=== PATIENT | female | born 1975 | race Caucasian/White ===

== ENCOUNTER 2020-11-12 17:38 | Emergency (ER) | payer OTHER, SELFPAY ==
[2020-11-12 17:45] VITALS: BP 136/68; PULSE 88; RESP 18; TEMP 37.6; O2SAT 97
--- NOTE | 2020-11-12 17:45 | ED.WOUNDLAC ---
HPI - Wound/Laceration General Chief Complaint: Extremity Injury, Lower Stated Complaint: Fall Time Seen by Provider: 11/12/20 17:45 Source: patient and RN notes reviewed History of Present Illness HPI narrative: Patient is a 45-year-old female who presents the urgent care with complaints of a left knee laceration. Patient states that she was carrying a large heavy box up with a curb and slipped off the curb and onto her left knee and left elbow. Patient states that she has a small scrape on the left elbow but is not complaining of any pain. Patient states that the pain is all located to the left knee. Patient states that it happened just prior to arrival and she has not taken anything [id number] for her pain. Denies hitting her head or any loss of consciousness. Patient states that she is up-to-date on her tetanus. No other acute complaints. No acute distress noted. Patient aware of the plan of care. Some parts of this dictation were generated by voice recognition software and may contain typographical and/or grammatical inaccuracies. Related Data Allergies Allergy/AdvReac Type Severity Reaction Status Date / Time No Known Allergies Allergy Mild Unverified 04/30/13 11:57 Review of Systems Review of Systems: Narrative: CONSTITUTIONAL: Denies fever, chills, or sweats. EYES: Denies visual changes, redness, or discharge. ENT: Denies rhinorrhea, congestion, sore throat, or otalgia. CARDIOVASCULAR: Denies chest pain, palpitations, or edema. RESPIRATORY: Denies cough or dyspnea. GASTROINTESTINAL: Denies abdominal pain, nausea, vomiting, or diarrhea. GENITOURINARY: Denies dysuria or hematuria. SKIN: Reports of a laceration to the left knee and a small abrasion to the left elbow and left pinky finger MUSCULOSKELETAL: Reports of left knee pain and swelling NEUROLOGIC: Denies headache, numbness, or weakness. All other systems reviewed are negative, except as documented in HPI. PMFSH Comments At the time of my signature, I reviewed and agree with the nursing past medical, surgical, social, and family history. There is no relevant family history pertinent to the patient complaint. Exam Narrative: Exam Narrative: GENERAL: This is a well-nourished, well-developed patient, in no apparent distress. HEAD: normocephalic, atraumatic. EYES: PERRL. Sclera clear/white. Vision is grossly intact. EARS: External ears normal NOSE: External nose normal with no obvious nasal discharge, nares without redness, no rhinorrhea. THROAT: Mucous membranes moist NECK: Neck supple SKIN: 3 cm linear laceration to the anterior kneecap. Mild skin abrasion to the left elbow and left fifth digit NEURO: awake, alert, and oriented to person, place and time. There were no obvious focal neurologic abnormalities. EXTREMITIES: Range of motion not tested to left knee due to laceration and pain/swelling. Notable swelling to the left knee with mild anterior tenderness. Positive strong left pedal pulse with capillary refill less than 2 seconds. Pain exacerbated with weightbearing. Course Vital Signs Vital signs: Vital Signs Temperature 99.6 F 11/12/20 17:45 Pulse Rate 88 11/12/20 17:45 Respiratory Rate 18 11/12/20 17:45 Blood Pressure 136/68 11/12/20 17:45 Pulse Oximetry 97 11/12/20 17:45 Temperature 99.6 F 11/12/20 17:45 Pulse Rate 88 11/12/20 17:45 Respiratory Rate 18 11/12/20 17:45 Blood Pressure 136/68 11/12/20 17:45 Pulse Oximetry 97 11/12/20 17:45 Reviewed Procedures Laceration Laceration 1: Site: lower extremity (Knee) Side (If applicable): left Size (cm): 3 Description: linear Depth: simple, single layer Local Anesthetic: lidocaine 1% Amount of anesthesia used (mL): 2 Pre-repair: irrigated and irrigated extensively ([employer] normal saline with large 60 mils syringe) ====== Skin Level ====== Skin layer closed with: steri strips (5) and other (Ethilon)
== END 2020-11-12 19:17 | disposition home or self-care (01) ==
PROVIDERS: Emergency Provider Nurse Practitioner Family; PCP Internal Medicine
DX: S81.012A Laceration without foreign body, left knee, initial encounter (principal); W10.1XXA Fall (on)(from) sidewalk curb, initial encounter
CPT/HCPCS: 12002; 99203; G0463

== ENCOUNTER 2022-03-04 18:59 | Emergency (ER) | payer OTHER, SELFPAY ==
[2022-03-04 19:08] VITALS: BP 134/95; PULSE 92; RESP 20; TEMP 37.5; O2SAT 100
--- NOTE | 2022-03-04 19:10 | ED.EAR ---
HPI - Ear Problem General Chief complaint: Ear Stated complaint: pressure in left ear Time Seen by Provider: 03/04/22 19:10 Source: patient and RN notes reviewed History of Present Illness HPI Narrative: Patient is a 46-year-old female who presents the urgent care with complaints of left ear pressure that started this morning patient is a patient states that she is taken ibuprofen but otherwise no use of [id number] medication. Patient states she had 1 dizzy spell today and was concerned she may have an ear infection. Patient denies any fevers, nausea, vomiting or other upper respiratory complaints. Patient denies of any ill exposures. No other acute complaints. No acute distress noted. Patient aware of plan of care. Some parts of this dictation were generated by voice recognition software and may contain typographical and/or grammatical inaccuracies. Related Data Home Medications Medication Instructions Recorded Confirmed cetirizine 5 mg tablet 5 mg DAILY 03/04/22 03/04/22 Allergies Allergy/AdvReac Type Severity Reaction Status Date / Time No Known Allergies Allergy Mild Verified 03/04/22 19:24 Review of Systems Review of Systems: CONSTITUTIONAL: Denies fever, chills, or sweats. EYES: Denies visual changes, redness, or discharge. ENT: Denies rhinorrhea, congestion, sore throat. reports of left otalgia CARDIOVASCULAR: Denies chest pain, palpitations, or edema. RESPIRATORY: Denies cough or dyspnea. GASTROINTESTINAL: Denies abdominal pain, nausea, vomiting, or diarrhea. GENITOURINARY: Denies dysuria or hematuria. SKIN: Denies rash or itching. MUSCULOSKELETAL: Denies back pain, joint pain, or myalgia. NEUROLOGIC: Denies headache, numbness, or weakness. All other systems reviewed are negative, except as documented in HPI. PMFSH Comments At the time of my signature, I reviewed and agree with the nursing past medical, surgical, social, and family history. There is no relevant family history pertinent to the patient complaint. Exam Narrative: GENERAL: This is a well-nourished, well-developed patient, in no apparent distress. HEAD: normocephalic, atraumatic. EYES: PERRL. Sclera clear/white. Vision is grossly intact. EARS: External ears normal, auditory canals clear and without drainage, mild to station tube dysfunction to the left without otitis. Bilateral left TMs normal without perforation. Hearing grossly intact. NOSE: External nose normal with no obvious nasal discharge, nares without redness, no rhinorrhea. THROAT: Mucous membranes moist, posterior pharynx clear. NECK: Neck supple, non-tender without lymphadenopathy CARDIOVASCULAR: Regular rate and rhythm without murmurs, gallops, or rubs. RESPIRATORY: Clear to auscultation. Breath sounds equal bilaterally. No wheezes, rales, or rhonchi. SKIN: warm, intact with no suspicious lesions or rash, good texture and turgor. NEURO: awake, alert, and oriented to person, place and time. There were no obvious focal neurologic abnormalities. EXTREMITIES: No clubbing, cyanosis, or edema. Course Course Level of Care: Express Care Visit Vital Signs Vital signs: Vital Signs Temperature 99.5 F 03/04/22 19:08 Pulse Rate 92 03/04/22 19:08 Respiratory Rate 20 03/04/22 19:08 Blood Pressure 134/95 H 03/04/22 19:08 Pulse Oximetry 100 03/04/22 19:08 Oxygen Delivery Room Air 03/04/22 19:08 Temperature 99.5 F 03/04/22 19:08 Pulse Rate 92 03/04/22 19:08 Respiratory Rate 20 03/04/22 19:08 Blood Pressure 134/95 H 03/04/22 19:08 Pulse Oximetry 100 03/04/22 19:08 Oxygen Delivery Room Air 03/04/22 19:08 Reviewed-patient is informed that they may have pre-hypertension or hypertension based on a blood pressure reading in the department. I recommend the patient call the primary care provider listed on their discharge instructions or a physician of their choice this week to arrange follow-up for further evaluation of possible pre-hypertension or
== END 2022-03-04 19:42 | disposition home or self-care (01) ==
PROVIDERS: Emergency Provider Nurse Practitioner Family; PCP Internal Medicine
DX: H69.92 Unspecified Eustachian tube disorder, left ear (principal)
CPT/HCPCS: 99213; G0463